=== PATIENT | female | born 1945 | race Caucasian/White ===

== ENCOUNTER 2017-12-05 18:54 | Emergency (ER) | payer MEDICARE, OTHER ==
[~2017-12-05] VITALS: Ht 165.1 cm; Wt 70.3 kg
[2017-12-05 20:03] LABS: Basophils # (auto) 0 uL; Basophils % (auto) 0.6 % (0.0-2.0); Eosinophils # (auto) 0.1 uL; Eosinophils % (auto) 1.2 % (0.0-7.0); Hematocrit 36.2 % (36.0-46.0); Hemoglobin 12.8 g/dL (12.2-16.2); Lymphocytes # (auto) 2.1 uL; Lymphocytes % (auto) 27.7 % (10.0-50.0); Mean Corpuscular Hemoglobin 31.9 pg (28.0-32.0); Mean Corpuscular Hgb Conc. 35.4 g/dL (32.0-36.0); Mean Corpuscular Volume 90.1 fL (80.0-100.0); Monocytes # (auto) 0.5 uL; Monocytes % (auto) 6.7 % (0.0-12.0); Neutrophils # (auto) 4.8 uL; Neutrophils % (auto) 63.8 % (37.0-80.0); Nucleated Red Blood Cells % 0.1 %; Platelet Count (auto) 212 10^3/uL (140-450); Red Blood Cells 4.02 10^6/uL (4.0-5.20); Red Cell Distribution Width 12.5 % (11.8-14.3); White Blood Cell 7.6 10^3/uL (4.4-10.8)
[2017-12-05] MEDS ORDERED: LORazepam 2MG/ML-1ML VIAL ONE (20:14)
[2017-12-05 20:20] LABS: INR 0.93 (0.9-1.15); Partial Thromboplastin Time 25.7 sec (22.64-33.71); Prothrombin Time 10.1 sec (9.37-12.3)
[2017-12-05 20:26] LABS: Alanine Aminotransferase 25 U/L (13-56); Albumin 3.7 g/dL (3.4-5.0); Alkaline Phosphatase 160 U/L (45-117); Anion Gap 10 (5-15); Aspartate Aminotransferase 19 U/L (15-37); BUN/Creatinine Ratio 17.8; Bilirubin, Total 0.3 mg/dL (0.2-1.0); Blood Alcohol < 3.0 mg/dL (0-5); Blood Urea Nitrogen 18 mg/dL (7-18); Calcium 8.1 mg/dL (8.5-10.1); Carbon Dioxide 29 mmol/L (21-32); Chloride 85 mmol/L (98-107); GFR African American 69 mL/min; GFR Non-African American 57 mL/min; Glucose 106 mg/dL (74-106); Sodium 124 mmol/L (136-145); Total Protein 6.8 g/dL (6.4-8.2)
[2017-12-05 20:36] LABS: Potassium 2.7 mmol/L (3.5-5.1)
[2017-12-05] MEDS ORDERED: SUCCINYLCHOLINE CHLORIDE 20 MG/ML 10ML VIAL IV ONE ×2 (20:51→21:15)
[2017-12-05] MEDS ORDERED: ETOMIDATE (2MG/ML) 20ML VIAL IV ONE ×2 (20:51→21:15)
[2017-12-05] MEDS ORDERED: MIDAZOLAM DRIP 50 mg/50mL 50 ML IV SCH (21:03)
[2017-12-05] MEDS ORDERED: MIDAZOLAM DRIP 50 mg/50mL 50 ML IV ONE (21:09)
[2017-12-05 21:10] LABS: Urine Blood Negative /uL (Negative); Urine Hyaline Cast FEW /lpf (0 - 2); Urine Specific Gravity 1.013 (1.001-1.035); Urine WBC 8 /hpf (0 - 5)
[2017-12-05] MEDS ORDERED: LEVETIRACETAM 500 MG/5ML INJ IV ONE (21:12)
[2017-12-05] MEDS ORDERED: POTASSIUM CHL 20MEQ/100ML 100 ML IV SCH (21:15)
[2017-12-05] MEDS ORDERED: LEVETIRACETAM INJ 500 MG in D5W 5% 100 ML IV ONE (21:15)
[2017-12-05] MEDS ORDERED: LORazepam 2MG/ML-1ML VIAL IV ONE (21:15)
[2017-12-05 21:25] LABS: Alcohol, Urine < 3.0 mg/dL (0-5); Amphetamine Screen, Urine NEGATIVE (NEGATIVE); Barbiturate Scree,Urine NEGATIVE (NEGATIVE); Benzodiazephine Screen, Urine NEGATIVE (NEGATIVE); Cannabinoid Screen, Urine NEGATIVE (NEGATIVE); Cocaine Screen, Urine NEGATIVE (NEGATIVE); Opiate Scree,Urine NEGATIVE (NEGATIVE); Phencyclidine Screen, Urine NEGATIVE (NEGATIVE)
[2017-12-05 21:29] LABS: Urine Bacteria FEW /hpf (None Seen)
[2017-12-05] MEDS ORDERED: cefTRIAXone 1GM/10ml IVPUSH 10 ML IV ONE (21:30)
[2017-12-05 21:47] VITALS: BP 115/64
== END 2017-12-05 23:06 | disposition short-term general hospital (02) ==
LOC: ER 18:54 → EDBD 18:54 → ER 23:06
DX: I63.9 Cerebral infarction, unspecified (principal); I10 Essential (primary) hypertension; R56.9 Unspecified convulsions; E87.6 Hypokalemia; E87.1 Hypo-osmolality and hyponatremia; R79.89 Other specified abnormal findings of blood chemistry; E78.5 Hyperlipidemia, unspecified
CPT/HCPCS: 31500; 36415; 70450; 71045; 80053; 80307; 80320; 81001; 83615; 84484; 85025; 85610; 85730; 93005; 96365; 96366; 96375; 99291; J0330; J1953; J2060; J2250; J3480; 94002; J7060

== ENCOUNTER 2023-09-11 18:25 | Emergency (ER) | payer MEDICARE, OTHER ==
[~2023-09-11] VITALS: Ht 172.7 cm; Wt 63.7 kg
[2023-09-11] MEDS ORDERED: DICYCLOMINE HCL (10MG/ML) 2 ML AMPULE IM ONE (19:00)
[2023-09-11 20:50] LABS: Urine Epithelial Cast None Seen /hpf (<5)
[2023-09-11 21:03] LABS: Urine Bacteria NONE SEEN /hpf (None Seen); Urine Blood Negative /uL (Negative); Urine Clarity HAZY (Clear); Urine Color Yellow (Yellow); Urine Protein, UAD TRACE (Negative); Urine Specific Gravity 1.016 (1.001-1.035); Urine Urobilinogen Normal (Negative); Urine WBC 527 /hpf (0 - 5)
[2023-09-11] MEDS ORDERED: SULFAMETHOX W/TRIMETH(800/160MG) DS TAB PO ONE (22:00)
[2023-09-11] MEDS ORDERED: BACDST PO (22:10)
[2023-09-11 23:33] VITALS: BP 133/62; PULSE 61; RESP 18; TEMP 99.9; O2SAT 96
== END 2023-09-11 23:35 | disposition home or self-care (01) ==
LOC: ER 18:25
DX: N39.0 Urinary tract infection, site not specified (principal); K59.00 Constipation, unspecified; E78.5 Hyperlipidemia, unspecified; I10 Essential (primary) hypertension; Z91.040 Latex allergy status
CPT/HCPCS: 74018; 81001; 96372; 99284; J0500

== ENCOUNTER 2024-03-11 10:25 | Inpatient (IN) | payer MEDICARE, OTHER ==
[~2024-03-11] VITALS: Ht 165.1 cm; Wt 55.0 kg
[~2024-03-11 10:25] MED LIST: BACDST PO
[2024-03-11] MEDS: ONDANSETRON HCL 4 MG/2 ML VIAL IV ONE (10:30)
[2024-03-11 11:24] LABS: Basophils # (auto) 0 10 ^3/uL (0-0.2); Basophils % (auto) 0.4 % (0.0-2.0); Eosinophils # (auto) 0.3 10 ^3/uL (0-0.8); Eosinophils % (auto) 5.4 % (0.0-7.0); Hematocrit 36.6 % (36.0-46.0); Hemoglobin 12.4 g/dL (12.2-16.2); Lymphocytes # (auto) 1.1 10 ^3/uL (0.4-5.4); Lymphocytes % (auto) 16.9 % (10.0-50.0); Mean Corpuscular Hemoglobin 31.7 pg (28.0-32.0); Mean Corpuscular Hgb Conc. 33.9 g/dL (32.0-36.0); Mean Corpuscular Volume 93.6 fL (80.0-100.0); Monocytes # (auto) 0.5 10 ^3/uL (0-1.3); Monocytes % (auto) 7.3 % (0.0-12.0); Neutrophils # (auto) 4.5 10 ^3/uL (1.6-8.6); Red Blood Cells 3.91 10^6/uL (4.0-5.20); Red Cell Distribution Width 13.3 % (11.8-14.3); White Blood Cell 6.4 10^3/uL (4.4-10.8)
[2024-03-11 11:27] LABS: Chloride 107 mmol/L (98-107); Potassium 4.8 mmol/L (3.5-5.1); Sodium 140 mmol/L (136-145)
[2024-03-11 11:28] LABS: Anion Gap 7 (5-15); Calcium 8.9 mg/dL (8.7-10.4); Carbon Dioxide 26 mmol/L (20-30)
[2024-03-11 11:33] LABS: BUN/Creatinine Ratio 16.6 (10.0-20.0); Blood Urea Nitrogen 24 mg/dL (9-23); Glucose 103 mg/dL (74-106)
[2024-03-11 11:42] VITALS: PULSE 54; RESP 16; O2SAT 92
[2024-03-11] MEDS ORDERED: MORPHINE SULFATE INJ 2 MG/ml SYRG IV PRN (14:45)
[2024-03-11] MEDS ORDERED: NITROGLYCERIN 0.4 MG SL TAB SL PRN (14:45)
[2024-03-11] MEDS ORDERED: ACETAMINOPHEN 325 MG TAB PO PRN (14:45)
[2024-03-11 15:33] LABS: LDL Cholesterol 56 mg/dL (< 100); Triglycerides 84 mg/dL (< 150)
[2024-03-11 15:35] LABS: Cholesterol 114 mg/dL (< 200); HDL Cholesterol 40 mg/dL (40-59)
[2024-03-11] MEDS ORDERED: TRAZ-181 PO (16:32)
[2024-03-11] MEDS ORDERED: MELA10CA OR (16:32)
[2024-03-11] MEDS ORDERED: CEL100T PO (16:32)
[2024-03-11] MEDS ORDERED: GABA-1250 PO (16:32)
[2024-03-11] MEDS ORDERED: ASPI-543 PO (16:32)
[2024-03-11] MEDS ORDERED: METO-159 PO (16:32)
[2024-03-11] MEDS ORDERED: CYCL-839 PO (16:32)
[2024-03-11] MEDS ORDERED: ATOR-507 PO (16:32)
[2024-03-11] MEDS ORDERED: AMLO1TAB22 PO (16:32)
[2024-03-11] MEDS ORDERED: LISI40TA16 PO (16:32)
[2024-03-11] MEDS ORDERED: ACET-1881 PO (16:32)
[2024-03-11] MEDS ORDERED: FAMO-12 PO (16:32)
[2024-03-11] MEDS ORDERED: LORazepam 2MG/ML-1ML VIAL IV PRN (17:30)
[2024-03-11] MEDS: SODIUM CHLORIDE 0.9% 1,000 ML IV SCH (18:46)
[2024-03-11 19:10] VITALS: PULSE 54; RESP 16; O2SAT 92
[2024-03-11] MEDS: ATORVASTATIN 20 MG TAB PO SCH (22:00)
[2024-03-12] VITALS (8 sets, daily range): BP systolic 145–175; BP diastolic 71–90; PULSE 60–77; RESP 17–20; TEMP 98.1–98.9; O2SAT 91–96
[2024-03-12 07:27] LABS: Basophils # (auto) 0 10 ^3/uL (0-0.2); Basophils % (auto) 0.3 % (0.0-2.0); Eosinophils # (auto) 0.2 10 ^3/uL (0-0.8); Eosinophils % (auto) 2.3 % (0.0-7.0); Hematocrit 38.1 % (36.0-46.0); Lymphocytes # (auto) 1.2 10 ^3/uL (0.4-5.4); Lymphocytes % (auto) 14.1 % (10.0-50.0); Mean Corpuscular Hemoglobin 31.5 pg (28.0-32.0); Mean Corpuscular Volume 92.7 fL (80.0-100.0); Monocytes # (auto) 0.6 10 ^3/uL (0-1.3); Monocytes % (auto) 7.4 % (0.0-12.0); Neutrophils # (auto) 6.3 10 ^3/uL (1.6-8.6); Neutrophils % (auto) 75.9 % (37.0-80.0); Red Blood Cells 4.11 10^6/uL (4.0-5.20); Red Cell Distribution Width 13.4 % (11.8-14.3); White Blood Cell 8.2 10^3/uL (4.4-10.8)
[2024-03-12 07:45] LABS: Alanine Aminotransferase 15 U/L (7-40); Albumin 3.8 g/dL (3.2-4.8); Alkaline Phosphatase 158 U/L (46-116); Anion Gap 7 (5-15); Aspartate Aminotransferase 15 U/L (13-40); BUN/Creatinine Ratio 14.2 (10.0-20.0); Blood Urea Nitrogen 16 mg/dL (9-23); Calcium 9.4 mg/dL (8.7-10.4); Carbon Dioxide 26 mmol/L (20-30); Chloride 105 mmol/L (98-107); Glucose 98 mg/dL (74-106); Potassium 4.1 mmol/L (3.5-5.1); Sodium 138 mmol/L (136-145)
[2024-03-12 07:46] LABS: Bilirubin, Total 0.7 mg/dL (0.2-1.0); Total Protein 6.3 g/dL (5.7-8.2)
[2024-03-12] MEDS: ASPirin 81 mg TAB PO SCH (09:08)
[2024-03-12] MEDS: ENOXAPARIN SOD 30 MG/0.3 ML SYRINGE SC SCH (09:09)
[2024-03-12] MEDS: LISINOPRIL 20 MG TAB PO ONE (15:20)
[2024-03-12] MEDS: amLODIPine BESYLATE 5 MG TAB PO ONE (15:21)
[2024-03-12] MEDS: METOPROLOL TARTRATE 50 MG TAB PO ONE (15:22)
[2024-03-12] MEDS: DOCUSATE SOD 100 MG CAP PO ONE (18:42)
[2024-03-12] MEDS: hydrALAZINE HCL 20 MG/ML VL IV PRN (18:42)
[2024-03-12] MEDS: METOPROLOL TARTRATE 50 MG TAB PO SCH (21:36)
[2024-03-13] VITALS (9 sets, daily range): BP systolic 141–158; BP diastolic 68–97; PULSE 60–67; RESP 16–19; TEMP 97.8–98.3; O2SAT 91–97
[2024-03-13] MEDS: LEVOTHYROXINE SODIUM 112 MCG TAB PO SCH (05:45)
[2024-03-13] MEDS: LISINOPRIL 20 MG TAB PO SCH (08:58)
[2024-03-13] MEDS: amLODIPine BESYLATE 5 MG TAB PO SCH (08:59)
[2024-03-13 09:22] LABS: Free T4 (Free Thyroxine) 1.19 ng/dL (0.89-1.76)
[2024-03-13 11:36] LABS: Folate (Folic Acid) > 48.00 ng/mL (>5.38)
[2024-03-13] MEDS: traZODone HCL 50 MG TAB PO SCH (21:49)
[2024-03-14 05:00] VITALS: BP 154/82; PULSE 60; RESP 18; TEMP 98.3; O2SAT 95
[2024-03-14 08:00] VITALS: PULSE 60; RESP 17; O2SAT 96
[2024-03-14 08:53] VITALS: BP 172/85; PULSE 60; RESP 17; TEMP 98.1; O2SAT 96
[2024-03-14 11:41] VITALS: BP 145/79; PULSE 60; RESP 17; TEMP 98.1; O2SAT 96
[2024-03-14 13:00] VITALS: BP 142/77; PULSE 58; RESP 18; TEMP 98.4; O2SAT 96
== END 2024-03-14 13:00 | disposition home or self-care (01) | DRG 391 ==
LOC: EDBD 10:25 → EDUNIT# 10:25 → ER 10:25 → TELE 14:48 → TELE-WESTW 22:20
PROVIDERS: ADMIT Nurse Practitioner Family; ATTEND Family Medicine
DX: K59.00 Constipation, unspecified (principal); I21.A1 Myocardial infarction type 2; I16.0 Hypertensive urgency; F03.90 Unspecified dementia, unspecified severity, without behavioral disturbance, psychotic disturbance, mood disturbance, and anxiety; N18.30 Chronic kidney disease, stage 3 unspecified; I12.9 Hypertensive chronic kidney disease with stage 1 through stage 4 chronic kidney disease, or unspecified chronic kidney disease; E78.00 Pure hypercholesterolemia, unspecified; E03.9 Hypothyroidism, unspecified; Z79.899 Other long term (current) drug therapy; Z86.73 Personal history of transient ischemic attack (TIA), and cerebral infarction without residual deficits; Z79.82 Long term (current) use of aspirin; Z82.49 Family history of ischemic heart disease and other diseases of the circulatory system; W18.39XA Other fall on same level, initial encounter; Y93.89 Activity, other specified; Y92.89 Other specified places as the place of occurrence of the external cause; Y99.8 Other external cause status
CPT/HCPCS: 36415; 70450; 70551; 80048; 80053; 80061; 82607; 82746; 83930; 84439; 84443; 84484; 85025; 93005; 93306; 93886; 95819; 97110; 97116; 97163; 97530; G0378